=== PATIENT | female | born 1995 | race African-American/Black ===

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

== ENCOUNTER 2017-01-18 04:39 | Emergency (ER) | payer OTHER ==
[~2017-01-18] VITALS: Ht 165.1 cm; Wt 61.4 kg
[~2017-01-18 04:39] MED LIST changes: +ACET650S3 PR; +CLAR10CA3 PO; +GUAISYP4 PO; +IBUP-1022 PO; -IBUP600T26 PO; +IPRAINH INH
[2017-01-18 04:45] VITALS: BP 113/72
[2017-01-18] MEDS ORDERED: PROAAER10 (04:49)
[2017-01-18] MEDS ORDERED: IRON65TA PO (04:49)
[2017-01-18 05:59] LABS: CONTROL LINE HCG INT CTR LINE PRESENT
[2017-01-18] MEDS ORDERED: COLA100C5 PO (06:36)
--- NOTE | 2017-01-18 07:31 | REP ---
Clinical: Constipation and abdominal pain. Technique: Upright view of the chest with supine and upright views of the abdomen and pelvis. Findings: Frontal upright view of the chest demonstrates no acute cardiopulmonary process or free air below the diaphragm to suspect pneumoperitoneum. Supine and upright views of the abdomen and pelvis demonstrate nonspecific bowel gas pattern without obstruction or perforation. No organomegaly. No abnormal calcifications. Skeletal structures normal for age. Impression: Nonspecific bowel gas pattern. Signed by Carlton Bailey MD 01/18/2017 07:23 A
== END 2017-01-18 06:46 | disposition home or self-care (01) ==
LOC: M ED 04:39
DX: D50.9 Iron deficiency anemia, unspecified (principal); T45.4X5A Adverse effect of iron and its compounds, initial encounter; K59.03 Drug induced constipation; R42 Dizziness and giddiness; R10.9 Unspecified abdominal pain; J45.909 Unspecified asthma, uncomplicated; Z91.018 Allergy to other foods

== ENCOUNTER 2017-01-20 06:20 | Emergency (ER) | payer OTHER ==
[~2017-01-20] VITALS: Ht 167.6 cm; Wt 61.0 kg
[~2017-01-20 06:20] MED LIST changes: +COLA100C5 PO; +IRON65TA PO; +PROAAER10
[2017-01-20 06:31] VITALS: BP 142/82
[2017-01-20] MEDS ORDERED: ADV250INH INH (06:46)
== END 2017-01-20 06:56 | disposition home or self-care (01) ==
LOC: M ED 06:20
DX: J45.909 Unspecified asthma, uncomplicated (principal); Z79.51 Long term (current) use of inhaled steroids; Z79.899 Other long term (current) drug therapy; Z91.018 Allergy to other foods

== ENCOUNTER 2017-02-26 07:42 | Emergency (ER) | payer OTHER ==
[~2017-02-26] VITALS: Ht 165.1 cm; Wt 61.3 kg
[~2017-02-26 07:42] MED LIST changes: +ADV250INH INH
[2017-02-26] MEDS ORDERED: ALBUTEROL SULFATE 2.5 MG/0.5 ML INH NEB SOLN NEB ONE (08:45)
[2017-02-26] MEDS ORDERED: IPRATROPIUM 0.5MG/ALBUTEROL 2.5MG INH SOL UD 3ML (DUONEB)(J7620) NEB ONE (08:45)
[2017-02-26] MEDS ORDERED: methylPREDNISolone INJ 125 MG/2 ML VIAL (J2930) IV ONE (08:45)
[2017-02-26] MEDS ORDERED: predniSONE 20 MG TAB PO ONE (08:45)
[2017-02-26 09:21] LABS: BASO % 0.5 % (0.0-1.0); EOS # 0.1 K/mm3 (0.0-0.50); EOS % 2.5 % (0.0-3.0); LARGE UNSTAINED CELL # 0.1 K/mm3 (0.0-0.4); LARGE UNSTAINED CELL % 2.3 % (0.0-4.0); LYMPH # 1.7 K/mm3 (1.5-6.5); LYMPH % 36.4 % (24.0-44.0); MEAN CORPUSCULAR HEMOGLOBIN 21.7 pg (27.0-33.0); MEAN CORPUSCULAR VOLUME 72.3 fl (80.0-96.0); MONO # 0.3 K/mm3 (0.0-0.8); MONO % 5.2 % (0.0-5.0); NEUTROPHILS # 2.5 K/mm3 (1.8-7.7); NEUTROPHILS % 53.1 % (36.0-66.0); PLATELET COUNT, AUTOMATED 232 k/mm3 (150-450); RED CELL DISTRIBUTION WIDTH 20.2 % (11.5-14.5); WHITE BLOOD COUNT 4.8 K/mm3 (4.0-10.0)
[2017-02-26 09:22] LABS: CONTROL LINE HCG INT CTR LINE PRESENT
[2017-02-26 09:26] LABS: ANION GAP 9 MEQ/L (8-16); BLOOD UREA NITROGEN 5 MG/DL (7-18); CALCIUM LEVEL 8.4 MG/DL (8.5-10.1); CARBON DIOXIDE LEVEL 25 MEQ/L (21-32); CHLORIDE LEVEL 107 MEQ/L (98-107); GLUCOSE, FASTING 90 MG/DL (70-105); POTASSIUM SERUM 3.8 MEQ/L (3.5-5.1); SODIUM LEVEL 141 MEQ/L (136-145)
[2017-02-26] MEDS ORDERED: ZITHTAB PO (10:09)
[2017-02-26] MEDS ORDERED: PRED10TA2 PO (10:09)
[2017-02-26] MEDS ORDERED: ALBU17IN INH (10:09)
[2017-02-26 10:10] VITALS: BP 129/69
--- NOTE | 2017-02-26 11:13 | REP ---
Chest x-ray: Two views. History: Cough . Comparison study: February 01, 2017 . Findings: The lungs are well inflated and free of infiltrate. The pleural angles are sharp. The heart size is normal. Pulmonary vasculature is not increased. No significant bony abnormality is seen. Impression: Negative chest x-ray. Signed by Sherif Leo MD 02/26/2017 09:50 A
== END 2017-02-26 10:25 | disposition home or self-care (01) ==
LOC: M ED 07:42
DX: J45.901 Unspecified asthma with (acute) exacerbation (principal); J20.9 Acute bronchitis, unspecified; D64.9 Anemia, unspecified; Z91.018 Allergy to other foods; Z79.51 Long term (current) use of inhaled steroids
CPT/HCPCS: 71020; 80048; 84703; 85025; 94640; 96374; 99283; J2930

== ENCOUNTER → 2017-03-02 | Outpatient (CLI) | payer OTHER ==
[~2017-03-02] MED LIST changes: +ALBU17IN INH; +FERR1TAB8 PO; +METHACHOLINE KIT (J7674) INH ONE; +NEBUMIS2 XX; +PRED10TA2 PO; +SENN1TAB2 PO; +VENTAER INH; +VITA500T PO; +ZITHTAB PO; +ZOFR4TAB3 PO
--- NOTE | 2017-03-02 11:06 | PFTRPT ---
Tech: Jackson HIGUERA RRT Age: 21 Sex: Female Race: Black Height: 65.00 Inches Weight: 141.00 Lbs BSA: 1.71 Diagnosis: R06.02 METHACHOLINE CHALLENGE REPORT: ORDERING PROVIDER: CHARMAINE Barrera DATE OF SERVICE: 03/02/17 INTERPRETATION: The study was of excellent technical quality. Under protocol, methacholine was administered. At a dose of 0.25 mg (1.375 CDUs), a 21% decline in the FEV1 was noted. The PC20 of 0.19 is significant. Flow rates returned to baseline post bronchodilator administration. IMPRESSION: Positive methacholine challenge study. MTDD
== END ==
LOC: M CARPUL 10:32
PROVIDERS: ATTEND Nurse Practitioner Adult Health
DX: R06.02 Shortness of breath (principal)
CPT/HCPCS: 94070; J7674

== ENCOUNTER 2017-03-04 05:51 | Emergency (ER) | payer OTHER ==
[~2017-03-04] VITALS: Ht 165.1 cm; Wt 65.0 kg
[~2017-03-04 05:51] MED LIST changes: -FERR1TAB8 PO; -METHACHOLINE KIT (J7674) INH ONE; -NEBUMIS2 XX; -SENN1TAB2 PO; -VENTAER INH; -VITA500T PO; -ZOFR4TAB3 PO
[2017-03-04] MEDS ORDERED: IPRATROPIUM 0.5MG/ALBUTEROL 2.5MG INH SOL UD 3ML (DUONEB)(J7620) NEB ONE (07:15)
[2017-03-04] MEDS ORDERED: NEBUMIS2 XX (07:29)
[2017-03-04] MEDS ORDERED: predniSONE 20 MG TAB PO ONE (07:30)
[2017-03-04 08:35] VITALS: BP 121/63
== END 2017-03-04 08:36 | disposition home or self-care (01) ==
LOC: M ED 05:51
DX: J45.909 Unspecified asthma, uncomplicated (principal); Z79.899 Other long term (current) drug therapy; Z91.018 Allergy to other foods

== ENCOUNTER 2017-03-10 06:35 | Emergency (ER) | payer OTHER ==
[~2017-03-10] VITALS: Ht 165.1 cm; Wt 65.4 kg
[~2017-03-10 06:35] MED LIST changes: +NEBUMIS2 XX
[2017-03-10] MEDS ORDERED: ONDANSETRON 4MG/2ML VIAL (J2405) IV ONE (07:00)
[2017-03-10] MEDS ORDERED: NS 500 ML IV ONE (07:00)
[2017-03-10 07:31] LABS: BASO % 0.4 % (0.0-1.0); EOS # 0.2 K/mm3 (0.0-0.50); EOS % 3.1 % (0.0-3.0); LARGE UNSTAINED CELL # 0.1 K/mm3 (0.0-0.4); LARGE UNSTAINED CELL % 2.2 % (0.0-4.0); LYMPH # 2.2 K/mm3 (1.5-6.5); LYMPH % 42.6 % (24.0-44.0); MEAN CORPUSCULAR HEMOGLOBIN 21.6 pg (27.0-33.0); MEAN CORPUSCULAR HGB CONC 29.3 g/dl (32.0-36.5); MEAN CORPUSCULAR VOLUME 73.7 fl (80.0-96.0); MONO # 0.2 K/mm3 (0.0-0.8); MONO % 3.1 % (0.0-5.0); NEUTROPHILS # 2.4 K/mm3 (1.8-7.7); NEUTROPHILS % 48.7 % (36.0-66.0); PLATELET COUNT, AUTOMATED 230 k/mm3 (150-450); RED CELL DISTRIBUTION WIDTH 20.5 % (11.5-14.5)
[2017-03-10 07:51] LABS: ALBUMIN 3.4 GM/DL (3.2-5.2); ALBUMIN/GLOBULIN RATIO 0.94 (1.00-1.93); ALKALINE PHOSPHATASE 62 U/L (45-117); ALT/SGPT 19 U/L (12-78); ANION GAP 7 MEQ/L (8-16); AST/SGOT 16 U/L (15-37); BILIRUBIN,DIRECT < 0.1 MG/DL (0.0-0.2); BILIRUBIN,TOTAL 0.2 MG/DL (0.2-1.0); BLOOD UREA NITROGEN 7 MG/DL (7-18); CALCIUM LEVEL 8.3 MG/DL (8.5-10.1); CARBON DIOXIDE LEVEL 26 MEQ/L (21-32); CHLORIDE LEVEL 108 MEQ/L (98-107); CREATININE FOR GFR 0.81 MG/DL (0.55-1.02); GLUCOSE, FASTING 89 MG/DL (70-105); HCG, SERUM QUANTITATIVE < 1.0 MIU/ML; POTASSIUM SERUM 3.5 MEQ/L (3.5-5.1); SODIUM LEVEL 141 MEQ/L (136-145)
[2017-03-10 08:00] LABS: ADD MORPHOLOGY? YES; HYPOCHROMASIA 2+; MICROCYTOSIS 3+; POIKILOCYTOSIS 1+
--- NOTE | 2017-03-10 08:21 | REP ---
Abdominal right upper quadrant ultrasound: There is no cholelithiasis, gallbladder wall thickening or pericholecystic fluid. A mucosal fold is incidentally noted in the gallbladder neck. There is no intrahepatic or extrahepatic biliary duct dilatation, the common duct measures 3 mm in diameter. The hepatic parenchyma is homogeneous and otherwise unremarkable. The visualized portion of the pancreatic head is unremarkable. The body and tail are obscured by bowel gas. There is no right renal calculus or hydronephrosis. There is a 6 mm cyst in the lower pole. Impression: Essentially negative abdominal right upper quadrant ultrasound. Signed by Bryon Alaniz MD 03/10/2017 08:12 A
--- NOTE | 2017-03-10 08:28 | REP ---
PA and lateral chest: Comparison is 02/27/2017. The lung ma are clear. The cardiac size is normal The damián, mediastinum, and bony thorax are unremarkable. Impression: Negative PA and lateral chest. There is no interval change. Signed by Bryon Alaniz MD 03/10/2017 08:19 A
[2017-03-10] MEDS ORDERED: ZOFR4TAB3 PO (08:30)
[2017-03-10 08:38] VITALS: BP 117/71
== END 2017-03-10 08:40 | disposition home or self-care (01) ==
LOC: M ED 06:35
DX: D64.9 Anemia, unspecified (principal); R11.2 Nausea with vomiting, unspecified; R10.11 Right upper quadrant pain; J45.909 Unspecified asthma, uncomplicated; Z79.84 Long term (current) use of oral hypoglycemic drugs; Z79.899 Other long term (current) drug therapy; Z91.018 Allergy to other foods
CPT/HCPCS: 71020; 76705; 80048; 80076; 83690; 84702; 85025; 86140; 96361; 96374; 99283; J2405

== ENCOUNTER 2017-04-05 07:02 | Emergency (ER) | payer OTHER ==
[~2017-04-05] VITALS: Ht 165.1 cm; Wt 65.9 kg
[~2017-04-05 07:02] MED LIST changes: +ZOFR4TAB3 PO
[2017-04-05] MEDS ORDERED: FERR1TAB8 PO (07:11)
[2017-04-05 08:11] LABS: BASO % 0.2 % (0.0-1.0); EOS # 0.1 10^3/uL (0.0-0.50); EOS % 2.4 % (0.0-3.0); LYMPH # 2.3 10^3/uL (1.5-6.5); LYMPH % 46.4 % (24.0-44.0); MEAN CORPUSCULAR HEMOGLOBIN 20.9 pg (27.0-33.0); MEAN CORPUSCULAR HGB CONC 29.1 g/dl (32.0-36.5); MONO # 0.4 10^3/uL (0.0-0.8); NEUTROPHILS # 2.2 10^3/uL (1.8-7.7); PLATELET COUNT, AUTOMATED 239 10^3/uL (150-450); RED CELL DISTRIBUTION WIDTH 17.8 % (11.5-14.5)
[2017-04-05 08:26] LABS: ADD MORPHOLOGY? YES; MEAN CORPUSCULAR VOLUME 71.6 fl (80.0-96.0); POSITIVE MORPH POS FLAG
[2017-04-05] MEDS ORDERED: NS 1,000 ML IV ONE (08:30)
[2017-04-05] MEDS ORDERED: ONDANSETRON 4MG/2ML VIAL (J2405) IV ONE (08:30)
[2017-04-05 08:31] LABS: ALBUMIN 3.9 GM/DL (3.2-5.2); ALBUMIN/GLOBULIN RATIO 1.03 (1.00-1.93); ALKALINE PHOSPHATASE 79 U/L (45-117); ALT/SGPT 28 U/L (12-78); AMYLASE 79 U/L (25-115); ANION GAP 6 MEQ/L (8-16); AST/SGOT 20 U/L (15-37); BILIRUBIN,DIRECT < 0.1 MG/DL (0.0-0.2); BILIRUBIN,TOTAL 0.2 MG/DL (0.2-1.0); BLOOD UREA NITROGEN 12 MG/DL (7-18); CALCIUM LEVEL 8.5 MG/DL (8.5-10.1); CARBON DIOXIDE LEVEL 27 MEQ/L (21-32); CHLORIDE LEVEL 106 MEQ/L (98-107); CREATININE FOR GFR 0.83 MG/DL (0.55-1.02); GLUCOSE, FASTING 90 MG/DL (70-105); POTASSIUM SERUM 4.3 MEQ/L (3.5-5.1); SODIUM LEVEL 139 MEQ/L (136-145); TOTAL PROTEIN 7.7 GM/DL (6.4-8.2)
[2017-04-05 08:41] LABS: MICROCYTOSIS 2+; OVALOCYTES 1+
[2017-04-05 08:42] LABS: ANISOCYTOSIS 1+; HYPOCHROMASIA 1+
[2017-04-05] MEDS ORDERED: ZOFR4TAB3 PO (09:36)
[2017-04-05 09:47] VITALS: BP 120/73
== END 2017-04-05 09:48 | disposition home or self-care (01) ==
LOC: M ED 07:02
DX: R10.84 Generalized abdominal pain (principal); R11.2 Nausea with vomiting, unspecified; R19.7 Diarrhea, unspecified
CPT/HCPCS: 80048; 80076; 81001; 81025; 82150; 83690; 85025; 96374; 99283; J2405

== ENCOUNTER 2017-04-12 12:54 | Inpatient (IN) | payer OTHER ==
[~2017-04-12] VITALS: Ht 165.1 cm; Wt 65.2 kg
[~2017-04-12 12:54] MED LIST changes: +FERR1TAB8 PO
[2017-04-12] MEDS ORDERED: ALBUTEROL SULFATE 2.5 MG/0.5 ML INH NEB SOLN NEB ONE (13:45)
[2017-04-12] MEDS ORDERED: MAG SULF 1GM/100ML (MAG RUN) 1 GM in APPROPRIATE DILUENT 1 EA IV ONE (13:45)
[2017-04-12 14:18] LABS: BASO % 0.2 % (0.0-1.0); EOS % 0.5 % (0.0-3.0); IMMATURE GRANULOCYTE % 0.3 % (0-0); LYMPH # 0.8 10^3/uL (1.5-6.5); LYMPH % 13.3 % (24.0-44.0); MEAN CORPUSCULAR HEMOGLOBIN 20.7 pg (27.0-33.0); MEAN CORPUSCULAR HGB CONC 29.4 g/dl (32.0-36.5); MONO # 0.1 10^3/uL (0.0-0.8); MONO % 1.5 % (0.0-5.0); NEUTROPHILS # 5.2 10^3/uL (1.8-7.7); NEUTROPHILS % 84.2 % (36.0-66.0); PLATELET COUNT, AUTOMATED 220 10^3/uL (150-450); RED CELL DISTRIBUTION WIDTH 17.2 % (11.5-14.5); WHITE BLOOD COUNT 6.1 10^3/uL (4.0-10.0)
[2017-04-12 14:19] LABS: MEAN CORPUSCULAR VOLUME 70.4 fl (80.0-96.0); POSITIVE MORPH POS FLAG
[2017-04-12 14:20] LABS: ADD MORPHOLOGY? YES
--- NOTE | 2017-04-12 14:34 | REP ---
CHEST, SINGLE VIEW: There is no evidence of acute infiltrate. No pleural effusion is seen. The heart is normal in size. The mediastinal silhouette is unremarkable. The visualized osseous structures are intact. IMPRESSION: No acute pulmonary disease. Signed by Bryon Rosas MD 04/12/2017 04:35 P
[2017-04-12 14:42] LABS: ANION GAP 5 MEQ/L (8-16); BLOOD UREA NITROGEN 9 MG/DL (7-18); CALCIUM LEVEL 8.8 MG/DL (8.5-10.1); CARBON DIOXIDE LEVEL 29 MEQ/L (21-32); CHLORIDE LEVEL 105 MEQ/L (98-107); CREATININE FOR GFR 0.89 MG/DL (0.55-1.02); GLUCOSE, FASTING 115 MG/DL (70-105); POTASSIUM SERUM 3.7 MEQ/L (3.5-5.1); SODIUM LEVEL 139 MEQ/L (136-145)
[2017-04-12 15:16] LABS: ANISOCYTOSIS 2+; HYPOCHROMASIA 2+
[2017-04-12 15:17] LABS: OVALOCYTES 1+
[2017-04-12 15:18] LABS: SCHISTOCYTES 1+
[2017-04-12 15:19] LABS: MICROCYTOSIS 2+
[2017-04-12] MEDS ORDERED: VENTAER INH (15:56)
[2017-04-12] MEDS ORDERED: NS 1,000 ML IV SCH (16:58)
[2017-04-12] MEDS ORDERED: ACETAMINOPHEN TAB 650MG DOSE (2X325MG) PO PRN (17:00)
[2017-04-12] MEDS ORDERED: ONDANSETRON 4MG/2ML VIAL (J2405) IV PRN (17:00)
[2017-04-12 17:18] LABS: CONTROL LINE HCG INT CTR LINE PRESENT
--- NOTE | 2017-04-12 17:18 | HPEPDOC ---
[facility] Medical History & Physical Date of Admission Apr 12, 2017 History and Physical PRIMARY CARE PROVIDER: Nazia Younger ATTENDING: Dr. Abigail Shaffer CHIEF COMPLAINT: Shortness of breath/cough HISTORY OF PRESENT ILLNESS: This 21-year-old female with a history of asthma, sickle cell disease, iron deficiency anemia who presents complaining of shortness of breath and cough. Patient states she was recently diagnosed with asthma in September when she moved to [place] from [place] and started working in the cooking region on the . Patient states that the fumes in the kitchen cause her to go into a asthma exacerbation. She has been seen in the emergency department 6 times since October and states that each time she came in it was after her shift in the kitchen. States she has a albuterol inhaler which she takes 3 times a day. Has not been on any maintenance medications. Patient was seen by Dr. Casey pulmonary outpatient, states she had a PFT test done and was diagnosed with asthma in September. Patient states her next pulmonary Pulm is on . Patient also notes that she does have 1 dog that she recently obtained a few months ago however no carpet at home. States mushrooms cause her to have a severe allergic reaction. The patient was brought to the ED by EMS and had received nebs and 10 mg Decadron in the ED. Patient states her shortness of breath has significantly improved however is not back to her baseline. Had chest tightness with the asthma exacerbation states she typically has checked chest tightness prior to her asthma exacerbations. States that this chest tightness was completely resolved at this point. States she was recently feeling ill over the past 3 days with sore throats a fever of 101 last night, and symptoms of gastric enteritis for which she was seen at [facility] 2 days ago. Patient states that the diarrhea she had 2 days ago has resolved. Her abdominal pain is significantly improved. Patient's resting comfortably in bed. He is not in any acute respiratory distress. PAST MEDICAL HISTORY: As per HPI PAST SURGICAL HISTORY: None SOCIAL HISTORY: Denies tobacco, alcohol, illicit drug use. FAMILY HISTORY: Noncontributory ALLERGIES: Please see below. REVIEW OF SYSTEMS: HEENT: Denies sore throat/headache CARDIOVASCULAR: Denies chest pain/palpitations RESPIRATORY: Positive shortness of breath/cough GASTROINTESTINAL: denies nausea/vomiting GENITOURINARY: Denies dysuria/urinary urgency. MUSCULOSKELETAL: Denies myalgias/arthralgias NEUROLOGICAL: Denies any focal weakness HOME MEDICATIONS: Please see below. PHYSICAL EXAMINATION: Vitals: (see below) General: No acute distress, laying comfortably in bed. HEENT: Moist mucous membranes. No erythema. No exudates. Neck: No JVD or lymphadenopathy Cardiac: RRR, No murmurs Pulm: Mild expiratory wheezing. No rhonchi. No crackles. No stridor. No use of accessory muscles. Abd: NT/ND + BS Ext: No edema or cyanosis LABORATORY DATA: See below. IMAGING: Chest x-ray on 04/12/17 with no acute pulmonary disease. CTA chest on 04/12/17 pending. MICROBIOLOGY: Please see below. ASSESSMENT/PLAN: 1. Acute asthma exacerbation- patient states she has been having frequent asthma exacerbations which she equates to fumes from the kitchen at the [facility]. This is her sixth year visit since October. She follows up with pulmonary. She is on albuterol inhaler. She would benefit from a maintenance inhaler such as Symbicort or Advair twice a day on discharge. Has a pulmonary appointment on . In the meantime, we'll place patient on telemetry,. Has symptoms of viral symptoms prior to this exacerbation; will check respiratory panel. 2. History sickle cell disease-states her last crisis was one month ago at [facility] when her hemoglobin was 3 needed blood transfusions. We'll obtain records. 3. Iron deficiency anemia- continue for sulfate. Outpatient follow-up. 4. T-wave inversions on EKG- patient denies any chest breath this time. Chronic enzymes negative thus far. We'll trend. Echocardiogram ordered. We'll obtain records from [facility] to determine if these are new. DVT prophylaxis- out of bed and ambulate Patient called by Dr. Abigail Shaffer starting 04/13/17 at 7 AM. Vital Signs Vital Signs Date Time Temp Pulse Resp B/P (MAP) Pulse Ox O2 Delivery O2 Flow Rate FiO2 04/12/17 16:18 04/12/17 16:09 70 99 04/12/17 13:04 98.8 18 Room Air Laboratory Data Labs 24H Laboratory Tests 2 04/12/17 14:00: Immature Granulocyte % (Auto) 0.3H, White Blood Count 6.1, Red Blood Count 4.49 , Hemoglobin 9.3L, Hematocrit 31.6L, Mean Corpuscular Volume 70.4L, Mean Corpuscular Hemoglobin 20.7L, Mean Corpuscular Hemoglobin Concent 29.4L, Red Cell Distribution Width 17.2H, Platelet Count 220, Neutrophils (%) (Auto) 84.2H , Lymphocytes (%) (Auto) 13.3L, Monocytes (%) (Auto) 1.5, Eosinophils (%) (Auto ) 0.5, Basophils (%) (Auto) 0.2, Neutrophils # (Auto) 5.2, Lymphocytes # (Auto) 0.8L, Monocytes # (Auto) 0.1, Eosinophils # (Auto) 0.0, Basophils # (Auto) 0.0, Immature Granulocyte # (Auto) 0.0, Nucleated Red Blood Cells % (auto) 0.0, Platelet Estimate NORMAL, Hypochromasia 2+, Anisocytosis 2+, Microcytosis 2+, Ovalocytes 1+, Schistocytes 1+, Anion Gap 5L, Blood Urea Nitrogen 9, Creatinine 0.89, Sodium Level 139, Potassium Level 3.7, Chloride Level 105, Carbon Dioxide Level 29, Calcium Level 8.8, Total Creatine Kinase 153, Creatine Kinase MB 1.0, Creatine Kinase MB Relative Index 0.65, Troponin I < 0.02 CBC/BMP Laboratory Tests 04/12/17 14:00 Red Blood Count 4.49, Mean Corpuscular Volume 70.4 L, Mean Corpuscular Hemoglobin 20.7 L, Mean Corpuscular Hemoglobin Concent 29.4 L, Red Cell Distribution Width 17.2 H, Neutrophils (%) (Auto) 84.2 H, Lymphocytes (%) (Auto ) 13.3 L, Monocytes (%) (Auto) 1.5, Eosinophils (%) (Auto) 0.5, Basophils (%) ( Auto) 0.2, Neutrophils # (Auto) 5.2, Lymphocytes # (Auto) 0.8 L, Monocytes # ( Auto) 0.1, Eosinophils # (Auto) 0.0, Basophils # (Auto) 0.0, Calcium Level 8.8, Total Creatine Kinase 153 Home Medications Scheduled Ferrous Sulfate (Ferrous Sulfate) 325 Mg Tab, 325 MG PO TID Scheduled PRN Albuterol Sulfate (Ventolin Hfa) 108 Mcg/Act Aer, 2 PUFFS INH Q4H PRN for SHORTNESS OF BREATH Allergies Coded Allergies: Mushroom (Verified Allergy, Severe, anaphylaxis, 04/12/17) ANAND FANG MD Apr 12, 2017 17:18
[2017-04-12] MEDS ORDERED: ISOVUE-370 76% 100ML VIAL (Q9967) As Ordered ONE (17:59)
[2017-04-12] MEDS: FERROUS SULFATE 325MG TAB PO SCH (20:08)
[2017-04-12] MEDS: methylPREDNISolone INJ 40 MG/1 ML VIAL (J2920) IV SCH (20:08)
[2017-04-12 20:20] VITALS: BP 121/76
--- NOTE | 2017-04-12 21:13 | ECGEPIP ---
Stationary ECG Study [facility] - ED Test Date: 2017-04-12 Pat Name: DELFINO PRABHAKAR Department: Room: - Gender: F [employer] Clerk: : 1995 Requested By: NGHIA Ziegler Order Number: [id number] Reading MD: Danae Albarran Measurements Intervals [place] Rate: 76 P: 38 GA: 130 QRS: 65 QRSD: 92 T: 33 QT: 376 QTc: 425 Interpretive Statements SINUS RHYTHM POSSIBLE RIGHT VENTRICULAR CONDUCTION DELAY NSTTW ABNORMALITY NO PRIOR FOR COMPARISON Electronically Signed On 04-12-2017 21:13:32 EDT by Danae Albarran
[2017-04-12] MEDS: IPRATROPIUM 0.5MG/ALBUTEROL 2.5MG INH SOL UD 3ML (DUONEB)(J7620) NEB SCH (21:25)
[2017-04-13] VITALS (7 sets, daily range): BP systolic 92–128; BP diastolic 51–77
[2017-04-13] MEDS: IPRATROPIUM 0.5MG/ALBUTEROL 2.5MG INH SOL UD 3ML (DUONEB)(J7620) NEB SCH ×7 (00:41→23:42)
[2017-04-13] MEDS: ALBUTEROL SULFATE 2.5 MG/0.5 ML INH NEB SOLN INH PRN (02:52)
[2017-04-13] MEDS: methylPREDNISolone INJ 40 MG/1 ML VIAL (J2920) IV SCH ×3 (03:00→17:03)
[2017-04-13] MEDS: FERROUS SULFATE 325MG TAB PO SCH ×3 (08:16→20:05)
[2017-04-13 08:49] LABS: PLATELET COUNT, AUTOMATED 247 10^3/uL (150-450); RED CELL DISTRIBUTION WIDTH 17.2 % (11.5-14.5); WHITE BLOOD COUNT 11.6 10^3/uL (4.0-10.0)
[2017-04-13 09:20] LABS: ANION GAP 11 MEQ/L (8-16); BLOOD UREA NITROGEN 8 MG/DL (7-18); CALCIUM LEVEL 9.2 MG/DL (8.5-10.1); CARBON DIOXIDE LEVEL 23 MEQ/L (21-32); CHLORIDE LEVEL 106 MEQ/L (98-107); CREATININE FOR GFR 0.89 MG/DL (0.55-1.02); GLUCOSE, FASTING 169 MG/DL (70-105); MAGNESIUM LEVEL 2.1 MG/DL (1.4-2.0); SODIUM LEVEL 140 MEQ/L (136-145)
[2017-04-13 12:42] LABS: RETIC HEMOGLOBIN EQUIVALENT 20.4 pg (24-36); RETICULOCYTE % 1.1 % (0.5-1.5)
[2017-04-13 12:44] LABS: REASON FOR REVIEW COMPREHENSIVE REVIEW
[2017-04-13] MEDS: SENOKOT S TAB PO SCH ×2 (12:55→20:05)
[2017-04-13] MEDS: ASCORBIC ACID 500 MG TAB PO SCH ×2 (12:55→20:05)
[2017-04-13] MEDS: LR 1,000 ML IV SCH ×2 (12:55→21:41)
--- NOTE | 2017-04-13 13:04 | REP ---
CHEST, TWO VIEWS: There is no evidence of acute infiltrate. No pleural effusion is seen. The heart is normal in size. The mediastinal silhouette is unremarkable. The visualized osseous structures are intact. IMPRESSION: No acute pulmonary disease. Signed by Bryon Rosas MD 04/14/2017 04:26 P
[2017-04-13 13:12] LABS: FERRITIN 5 NG/ML (8-252); PERCENT SATURATION 22.3 % (13.2-45.0); TOTAL IRON BINDING CAPACITY 394 UG/DL (250-450); VITAMIN B12 LEVEL 628 PG/ML (247-911)
[2017-04-13 13:13] LABS: FOLATE 9.4 NG/ML (>5.4)
--- NOTE | 2017-04-13 18:00 | IPN ---
DATE: 04/13/2017 The patient continued to report shortness of breath with wheezing and coughing and chest pressure. Denies any fevers, chills, chest pain, pressure or discomfort. VITAL SIGNS: Temperature 99.5, pulse 110, respiratory rate 20, blood pressure 120/62, pulse oximetry 98% on room air. Blood cultures negative. Respiratory panel negative. Chest x-ray with no acute disease. LABORATORY DATA: WBC 11.6, hemoglobin and hematocrit 8.9/29.7, platelets 247. Chemistry: Sodium 140, potassium 4, chloride 106, bicarbonate 23, BUN 8, creatinine 0.89, C-reactive protein negative. PHYSICAL EXAMINATION: GENERAL: The patient is awake, alert, and oriented times three, in no acute distress. HEENT: Normocephalic, atraumatic. Moist mucous membranes. CARDIAC: Regular rate and rhythm with normal S1, S2. PULMONARY: Mild expiratory wheeze. No crackles, rales, or rhonchi. ABDOMEN: Soft, nontender. Positive bowel sounds. EXTREMITIES: No clubbing, cyanosis, or edema. ASSESSMENT AND PLAN: This is a 21-year-old female patient with underlying medical history of asthma, iron deficiency anemia, menorrhagia, initially thought to be having sickle cell disease, presented with shortness of breath and cough. PROBLEM LIST: 1. Acute asthma exacerbation, likely viral. C-reactive protein has been negative. Continue Solu-Medrol, inhaler, nebulizer treatment. We will place the patient on Advair as well. Case discussed with Dr. Roque. The patient had negative hemoglobin electrophoresis. Therefore, the patient does not have sickle cell disease or traits. As per Dr. Laya Roque, likely anemia due to menorrhagia. Therefore, no concern for acute chest. 2. Iron deficiency anemia. Continue ferrous sulfate, vitamin C. Transfusions as needed. Followup hemoglobin and hematocrit. Workup as ordered. 3. T wave inversion on EKG. Denies any chest pain. Enzymes appreciated. Echocardiogram ordered. We will obtain record from [facility]. Suspected sickle cell disease, as per Dr. Laya Roque the patient does not have sickle cell disease or traits. Hemoglobin electrophoresis and workup has been negative. The patient did not followup when asked to followup results. We will follow hemoglobin and hematocrit. Transfuse as needed. Followup fecal occult. Anemia workup as ordered. 4. Deep vein thrombosis (DVT) prophylaxis. Early ambulation. DISPOSITION: Pending clinical improvement.
[2017-04-13 18:18] LABS: CONTROL LINE HCG INT CTR LINE PRESENT
[2017-04-13] MEDS: ADVAIR HFA 230/21MCG INHALER INH SCH (20:48)
[2017-04-14] VITALS (7 sets, daily range): BP systolic 106–145; BP diastolic 57–92
[2017-04-14] MEDS: methylPREDNISolone INJ 40 MG/1 ML VIAL (J2920) IV SCH ×4 (00:50→18:00)
[2017-04-14] MEDS: IPRATROPIUM 0.5MG/ALBUTEROL 2.5MG INH SOL UD 3ML (DUONEB)(J7620) NEB SCH ×5 (03:04→19:31)
[2017-04-14 05:16] LABS: MEAN CORPUSCULAR HEMOGLOBIN 20.9 pg (27.0-33.0); MEAN CORPUSCULAR HGB CONC 29.7 g/dl (32.0-36.5); PLATELET COUNT, AUTOMATED 277 10^3/uL (150-450); RED CELL DISTRIBUTION WIDTH 17.3 % (11.5-14.5); WHITE BLOOD COUNT 14.8 10^3/uL (4.0-10.0)
[2017-04-14 05:18] LABS: MEAN CORPUSCULAR VOLUME 70.2 fl (80.0-96.0)
[2017-04-14 05:31] LABS: ANION GAP 7 MEQ/L (8-16); BLOOD UREA NITROGEN 6 MG/DL (7-18); CALCIUM LEVEL 8.7 MG/DL (8.5-10.1); CARBON DIOXIDE LEVEL 26 MEQ/L (21-32); CHLORIDE LEVEL 105 MEQ/L (98-107); CREATININE FOR GFR 0.72 MG/DL (0.55-1.02); GLUCOSE, FASTING 145 MG/DL (70-105); POTASSIUM SERUM 4.4 MEQ/L (3.5-5.1); SODIUM LEVEL 138 MEQ/L (136-145)
[2017-04-14] MEDS ORDERED: GASTROGRAFIN SOLUTION 30ML PO ONE (09:00)
[2017-04-14] MEDS: MIRALAX *UNIT DOSE* 17GM PACKET PO SCH ×2 (09:00→09:11)
[2017-04-14] MEDS: ASCORBIC ACID 500 MG TAB PO SCH ×2 (09:11→20:38)
[2017-04-14] MEDS: SENOKOT S TAB PO SCH ×2 (09:11→20:38)
[2017-04-14] MEDS: FERROUS SULFATE 325MG TAB PO SCH ×3 (09:11→20:38)
[2017-04-14] MEDS ORDERED: GASTROGRAFIN SOLUTION 30ML (Q9963) PO ONE (09:30)
[2017-04-14] MEDS: ADVAIR HFA 230/21MCG INHALER INH SCH ×2 (09:54→19:31)
[2017-04-14] MEDS: ALBUTEROL SULFATE 2.5 MG/0.5 ML INH NEB SOLN INH PRN (09:54)
[2017-04-14] MEDS ORDERED: ISOVUE-370 76% 100ML VIAL (Q9967) As Ordered ONE (10:44)
[2017-04-14] MEDS: LR 1,000 ML IV SCH (11:30)
--- NOTE | 2017-04-14 13:25 | REP ---
CT of the abdomen and pelvis with IV and oral contrast: There are no comparisons. The visualized lung ma are unremarkable. The hepatic parenchyma, gallbladder, pancreas, spleen, adrenals, kidneys and abdominal aorta are unremarkable. There is no bowel distension or obstruction. The mesentery is unremarkable. Pelvis: There is a trace of free fluid along the posteromedial border of the right ovary. The uterus and adnexa are otherwise unremarkable. The appendix is unremarkable. There is no adenopathy or ascites. The bladder is unremarkable. Impression: There is a trace of free fluid along the inferomedial border of the right ovary, possibly from a recently ruptured ovarian cyst. Otherwise, negative CT of the abdomen and pelvis. Signed by Bryon Alaniz MD 04/14/2017 01:17 P
--- NOTE | 2017-04-14 17:23 | IPN ---
DATE: 04/14/2017 Patient seen and examined. No acute events overnight. Report of abdominal pain. Denies any chest pain, pressure, or discomfort. VITAL SIGNS: Temperature 99, pulse 91, respirations 20, blood pressure 124/68, pulse oximetry 98% on room air. LABORATORY DATA: WBC 14.8, hemoglobin and hematocrit 9.1/30.6, platelets 277. Chemistry: Sodium 138, potassium 4.4, chloride 105, bicarbonate 26, BUN 6, creatinine 0.72. PHYSICAL EXAMINATION: GENERAL: Patient alert and oriented times three in no acute distress. HEENT: Normocephalic, atraumatic. PULMONARY: Bilaterally clear to auscultation. CARDIAC: Regular rate and rhythm. Normal S1, S2. ABDOMEN: Diffusely tender. Positive bowel sounds. No rebound. No guarding. EXTREMITIES: No clubbing, cyanosis, or edema. ASSESSMENT AND PLAN: This is a 21-year-old female patient with underlying medical history of asthma, iron deficiency anemia, menorrhagia, initially thought to have sickle cell disease, presented with shortness of breath and cough. 1. Acute asthma exacerbation, likely viral. C-reactive protein has been negative. Solu-Medrol. Taper steroid. Nebulizer treatment. Advair. Case discussed with Dr. Reyna. Patient had negative hemoglobin and electrophoresis, therefore does not have sickle cell disease or traits as Dr. Laya Reyna. Anemia is due to menorrhagia, therefore no concern for acute chest. 2. Iron deficiency anemia. Continue ferrous sulfate, vitamin C. Transfusion as needed. Followup hemoglobin and hematocrit. Further workup as outpatient. 3. T- wave inversion on EKG. Denies any chest pain. .Enzymes have been appreciated. Echo has been ordered. Obtained record from [facility]. Patient does not have history of sickle cell disease or trait as per Dr. Laya Reyna. Fecal occult has been negative. 4. Abdominal pain. CT scan appreciated. Lipase has been negative. Likely secondary to ruptured ovarian cyst. 5. Deep vein thrombosis (DVT) prophylaxis. Early ambulation. DISPOSITION PLANNING: Pending chronic lymphocytic leukemia improvement.
[2017-04-14] MEDS ORDERED: SLF 3 ML SYR IV PRN (19:00)
[2017-04-14] MEDS: SLF 3 ML SYR IV SCH (20:38)
[2017-04-15] VITALS: BP 142/66
[2017-04-15] MEDS: IPRATROPIUM 0.5MG/ALBUTEROL 2.5MG INH SOL UD 3ML (DUONEB)(J7620) NEB SCH ×3 (03:11→08:00)
[2017-04-15 04:00] VITALS: BP 105/73
[2017-04-15] MEDS: methylPREDNISolone INJ 40 MG/1 ML VIAL (J2920) IV SCH (05:11)
[2017-04-15] MEDS: SLF 3 ML SYR IV SCH (05:11)
--- NOTE | 2017-04-15 06:36 | ECHO ---
DATE OF PROCEDURE: 04/13/2017 DATE OF : 1995 AGE: 21 GENDER: Female HEIGHT: 65 inches WEIGHT: 143 pounds BODY SURFACE AREA: 1.72 meters squared INPATIENT: PCU REFERRING PHYSICIAN: Dr. Kim James INDICATION: Abnormal EKG. MEASUREMENTS: 2-D Measurements: RV: 3.9 cm LV: 4.3cm Septum: 1.0 cm Posterior wall: 1.0 cm Aortic root: 2.4 cm LA: 3.1 cm LVEF: 65% Doppler Measurements: AV: 2.3 m/s LVOT: 1.6 m/s LVOT diameter: 1.8 cm MV - E: 120 A 130 EA ratio 1 Early mitral deceleration time: 151 ms E prime: 14.9 A prime: 12 E/E prime ratio: 8 PV: 1.1 m/s RVSP: 25 mmHg IVC: 1.5 cm COMMENTS: Sinus tachycardia without intraventricular conduction disturbance. Normal cardiac chamber sizes, wall thickness and wall motion. Normal-appearing mitral valvular apparatus and leaflet excursion with no posterior systolic buckling. Three equal size aortic cusps of normal thickness and cusp separation. Normal aortic root size. No apparent intracardiac mass or pericardial effusion. Color flow Doppler study taken with parasternal and apical projection showed trace mitral and very mild tricuspid, but no aortic insufficiency. Guided continuous wave Doppler of her aortic valve and pulsed Doppler study of her LV outflow tract taken from the apical long axis and five chamber projection showed an increased peak systolic velocity, but LV outflow tract velocity was also increased in keeping with a hyperdynamic circulation rather than LV outflow tract obstruction. Pulsed and continuous wave Doppler of her LV inflow tract taken from the apical and four-chamber projection showed normal diastolic filling velocities against mitral stenosis. The filling pattern was normal against LV diastolic dysfunction. Pulsed and continuous wave Doppler of her pulmonary trunk showed a normal peak systolic velocity against RV outflow tract. Guided continuous wave Doppler of her tricuspid valve allowed our estimation of her right ventricular systolic pressure (within normal limits). Her inferior vena cava was of normal size and collapsed normally with respiration against an elevated central venous pressure. CONCLUSIONS: Normal-appearing echocardiogram/Doppler study.
[2017-04-15 07:24] LABS: MEAN CORPUSCULAR HEMOGLOBIN 20.5 pg (27.0-33.0); MEAN CORPUSCULAR HGB CONC 28.9 g/dl (32.0-36.5); PLATELET COUNT, AUTOMATED 294 10^3/uL (150-450); RED CELL DISTRIBUTION WIDTH 17.8 % (11.5-14.5); WHITE BLOOD COUNT 12.9 10^3/uL (4.0-10.0)
[2017-04-15 07:48] LABS: ANION GAP 8 MEQ/L (8-16); BLOOD UREA NITROGEN 11 MG/DL (7-18); CALCIUM LEVEL 9.1 MG/DL (8.5-10.1); CARBON DIOXIDE LEVEL 29 MEQ/L (21-32); CHLORIDE LEVEL 104 MEQ/L (98-107); CREATININE FOR GFR 0.76 MG/DL (0.55-1.02); GLUCOSE, FASTING 114 MG/DL (70-105); POTASSIUM SERUM 4.3 MEQ/L (3.5-5.1); SODIUM LEVEL 141 MEQ/L (136-145)
[2017-04-15 08:00] VITALS: BP 135/86
[2017-04-15] MEDS: ADVAIR HFA 230/21MCG INHALER INH SCH (08:04)
[2017-04-15] MEDS ORDERED: VITA500T PO (08:06)
[2017-04-15] MEDS ORDERED: FERR1TAB8 PO (08:06)
[2017-04-15] MEDS ORDERED: SENN1TAB2 PO (08:06)
[2017-04-15] MEDS ORDERED: PRED10TA2 PO (08:06)
[2017-04-15] MEDS: MIRALAX *UNIT DOSE* 17GM PACKET PO SCH (08:34)
[2017-04-15] MEDS: FERROUS SULFATE 325MG TAB PO SCH (08:34)
[2017-04-15] MEDS: SENOKOT S TAB PO SCH (08:34)
[2017-04-15] MEDS: ASCORBIC ACID 500 MG TAB PO SCH (08:34)
[2017-04-15] MEDS ORDERED: predniSONE 50 MG TAB PO SCH (09:00)
--- NOTE | 2017-04-17 00:16 | DSES ---
DATE OF ADMISSION: 04/14/2017 DATE OF DISCHARGE: 04/15/2017 FINAL DIAGNOSES: Acute asthma exacerbation. Ruptured ovarian cyst. Iron deficiency anemia. HISTORY OF THE PRESENT ILLNESS: This is a 21-year-old female patient with underlying medical history of asthma, iron deficiency anemia. Patient apparently reported that she has sickle cell disease, presented with complaints of shortness of breath and cough, was recently diagnosed with asthma in September. 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 The patient states that the fumes in the kitchen have been causing her to go into asthma exacerbation. She has been seen in the emergency room six times since October and states that each time she came in, it was after her shift in the kitchen. She states that she has had albuterol inhaler, which she takes three times a day and has not been on any maintenance medication. She has been seen by Dr. Mcdonald, pulmonary as an outpatient. She has had pulmonary function tests done and was diagnosed with asthma in September. She states that her next pulmonary followup was on . The patient also has a dog. No carpet in the home. She was allergic to MUSHROOM. The patient was given a nebulizer treatment, Decadron, with improvement of shortness of breath in the emergency room. HOSPITAL COURSE; The patient was admitted to the hospital. C-reactive protein was negative. Respiratory panel was negative. Cultures were followed. Steroids were started and tapered. During the hospital course, the patient also reported abdominal pain. Workup has been negative in terms of negative lipase and CT scan shows a ruptured ovarian cyst. Furthermore, the case was discussed with Dr. Laya Roque, the patient's hematology/oncologist, who confirmed that the patient does not have sickle cell disease or trait with negative hemoglobin electrophoresis, but patient likely has anemia, iron deficiency anemia secondary to menorrhagia. The patient's condition progressively improved, currently returned to baseline, tolerating oral, ready for discharge for further care. VITAL SIGNS: Temperature 98.5, pulse 85, respirations 18, blood pressure 135/86, pulse oximetry 99% on room air. GENERAL: Patient alert and oriented times three, in no acute distress. HEENT: Normocephalic, atraumatic. PULMONARY: Minimal wheeze. CARDIAC: Regular rate and rhythm. Normal S1, S2. ABDOMEN: Soft, nontender, positive bowel sounds EXTREMITIES: No clubbing, cyanosis or edema. LABORATORY: WBC 12.9, hemoglobin and hematocrit 9 over 31.1, platelets 294. Chemistry: Sodium 141, potassium 4.3, chloride 104, bicarbonate 29, BUN 11, creatinine 0.79. DISCHARGE MEDICATIONS: - vitamin C 500 mg by mouth twice a day - prednisone 10 mg by mouth tablets, taper with four tablets by mouth daily for 2 days, two tablets by mouth daily for 2 days and then one tablet by mouth daily for two days, then stop. - Senna Plus one tablet by mouth twice a day - Ventolin inhaler every 4 hours as needed - ferrous sulfate 325 mg by mouth three times a day DISCHARGE INSTRUCTIONS: The patient was instructed to followup with primary care provider in 7 days, hematology/oncology doctor, Dr. Laya Roque, in 2-3 weeks and exchange engineer in 2 weeks. Return to the hospital if symtoms worsen.
--- NOTE | 2017-04-23 18:42 | REP ---
HISTORY: Chest pain. COMPARISON: 02/27/2017 from [facility], which was normal. CONTRAST: 100 mL Isovue-370. There is excellent visualization of the pulmonary arterial vasculature. There are no focal filling defects present that would be considered consistent with pulmonary emboli. There are no pleural or pericardial effusions. The mediastinum and pulmonary damián are unchanged showing no evidence of a mass or adenopathy. The imaged upper abdomen and imaged osseous structures are within normal limits and unchanged from the prior exam. Evaluation of the lung ma show no significant changes from the prior examination. There are no abnormal nodules, masses, or opacities. IMPRESSION: CT findings are within normal limits and unchanged from the prior exam. Signed by Osvaldo Morrison DO 04/28/2017 05:40 P
== END 2017-04-15 09:50 | disposition home or self-care (01) | DRG 203 ==
LOC: EDBD 12:54 → M ED 12:54 → M ED INP 16:58 → M PCU 18:25 → OBSVTOIN 04-14 11:23 → M PED 04-14 21:10
PROVIDERS: ADMIT Internal Medicine; ATTEND Hospitalist
DX: J45.901 Unspecified asthma with (acute) exacerbation (principal); D50.0 Iron deficiency anemia secondary to blood loss (chronic); Z91.018 Allergy to other foods; N92.0 Excessive and frequent menstruation with regular cycle; N83.201 Unspecified ovarian cyst, right side; Z79.899 Other long term (current) drug therapy

== ENCOUNTER 2017-09-14 17:16 | Emergency (ER) | payer OTHER | END 2017-09-14 18:14 | disposition home or self-care (01) | LOC: M ED 17:16 | DX: Z04.8 Encounter for examination and observation for other specified reasons (principal); Z79.899 Other long term (current) drug therapy; Z91.018 Allergy to other foods | CPT/HCPCS: 99282 ==

== ENCOUNTER 2017-09-15 00:23 | Emergency (ER) | payer OTHER ==
[2017-09-15] MEDS: ALBUTEROL SULFATE 2.5 MG/0.5 ML INH NEB SOLN INH ×2 (00:59→03:02)
[2017-09-15] MEDS: methylPREDNISolone INJ 125 MG/2 ML VIAL (J2930) IM (01:07)
== END 2017-09-15 05:17 | disposition home or self-care (01) ==
LOC: M ED 00:23
DX: J45.909 Unspecified asthma, uncomplicated (principal); D57.3 Sickle-cell trait; Z91.018 Allergy to other foods; Z79.52 Long term (current) use of systemic steroids; Z79.899 Other long term (current) drug therapy
CPT/HCPCS: J2930

== ENCOUNTER → 2019-04-20 | Outpatient (REF) | payer MEDICAID ==
[~2019-04-20] MED LIST changes: +SENN-53 PO; +VENTAER INH; +VITA500T PO; +ZOFR4TAB14 PO; -ZOFR4TAB3 PO
[2019-04-20 13:38] LABS: HEMATOCRIT 29.7 % (36.0-47.0); HEMOGLOBIN 8.8 g/dl (12.0-15.5); MEAN CORPUSCULAR HEMOGLOBIN 22.6 pg (27.0-33.0); MEAN CORPUSCULAR HGB CONC 29.6 g/dl (32.0-36.5); MEAN CORPUSCULAR VOLUME 76.3 fl (80.0-96.0); PLATELET COUNT, AUTOMATED 176 10^3/uL (150-450); RED BLOOD COUNT 3.89 10^6/uL (4.00-5.40); WHITE BLOOD COUNT 7.1 10^3/uL (4.0-10.0)
[2019-04-21 10:18] LABS: HIV 1&2 SCREEN CENTAUR NEGATIVE (NEGATIVE); RUBELLA IgG QUALITATIVE IMMUNE (IMMUNE)
== END ==
LOC: M LAB REF 12:44
PROVIDERS: ATTEND Obstetrics & Gynecology
DX: O36.80X0 Pregnancy with inconclusive fetal viability, not applicable or unspecified (principal)

== ENCOUNTER 2019-05-20 14:23 | Outpatient (CLI) | payer MEDICAID ==
[~2019-05-20] VITALS: Ht 167.6 cm; Wt 70.8 kg
[2019-05-20 14:43] VITALS: BP 111/72
[2019-05-20] MEDS ORDERED: PRENTAB9 PO (15:04)
== END 2019-05-20 16:00 | disposition home or self-care (01) ==
LOC: M LDO 14:23
PROVIDERS: ATTEND Obstetrics & Gynecology
DX: O21.2 Late vomiting of pregnancy (principal); Z3A.26 26 weeks gestation of pregnancy

== ENCOUNTER → 2019-06-06 | Outpatient (CLI) | payer MEDICAID ==
[~2019-06-06] MED LIST changes: +PRENTAB9 PO
[2019-06-06 11:12] LABS: HEMOGLOBIN 9.8 g/dl (12.0-15.5); MEAN CORPUSCULAR HEMOGLOBIN 23.9 pg (27.0-33.0); MEAN CORPUSCULAR HGB CONC 29.7 g/dl (32.0-36.5); MEAN CORPUSCULAR VOLUME 80.5 fl (80.0-96.0); PLATELET COUNT, AUTOMATED 142 10^3/uL (150-450); WHITE BLOOD COUNT 6.8 10^3/uL (4.0-10.0)
== END ==
LOC: M LAB 08:28
PROVIDERS: ATTEND Obstetrics & Gynecology
DX: Z34.82 Encounter for supervision of other normal pregnancy, second trimester (principal)

== ENCOUNTER 2019-06-10 15:37 | Outpatient (CLI) | payer MEDICAID ==
[~2019-06-10] VITALS: Ht 167.6 cm; Wt 74.1 kg
[2019-06-10 15:57] VITALS: BP 110/73
== END 2019-06-10 17:00 | disposition home or self-care (01) ==
LOC: M LDO 15:37
PROVIDERS: ATTEND Obstetrics & Gynecology
DX: O36.8131 Decreased fetal movements, third trimester, fetus 1 (principal); Z3A.29 29 weeks gestation of pregnancy; O99.013 Anemia complicating pregnancy, third trimester

== ENCOUNTER 2019-07-06 10:31 | Outpatient (CLI) | payer MEDICAID ==
[~2019-07-06] VITALS: Ht 167.6 cm; Wt 74.1 kg
[2019-07-06 11:03] VITALS: BP 108/60
[2019-07-06 13:18] VITALS: BP 113/63
--- NOTE | 2019-07-06 13:59 | REP ---
Obstetric sonography: History: Supervision of . anatomy. History of possible intracranial anomaly. No comparison sonogram. Findings: Scanning through the gravid uterus demonstrates a living intrauterine gestation in a cephalic lie. motion is observed and heart rate is recorded at 151 beats per minute. A posterior grade 2 placenta is seen without evidence of previa or abruption. Amniotic fluid is subjectively normal. Closed cervical length is 3.5 cm. There is a somewhat prominent persistent cavum vergae between the cerebral hemispheres just posterior to the normally visualized cavum septum pellucidum. This persistence of the cavum vergae is a normal variant. No other intracranial abnormality is appreciated. Choroid plexus and the ventricles are unremarkable. Cerebellum and posterior fossa are intact. The following additional anatomic structures are identified and felt to be unremarkable: Face and profile, right ventricular cardiac outflow tract view, diaphragm, left-sided stomach, three-vessel cord, kidneys and bladder, spine, lower extremities. The lungs, four-chamber heart and left ventricular outflow tract as well as abdominal wall cord insertion and upper extremities are less than optimally seen due to crowding and position. Biometry chart: BPD 8.0 cm = 32 weeks 0 days Head circumference 29.6 cm = 32 weeks 5 days Abdominal circumference 28.8 cm = 32 weeks 6 days Femur length 6.0 cm = 31 weeks 2 days Humeral length 5.5 cm = 31 weeks 5 days HC/AC ratio normal 1.03. Cephalic index normal 0.75. Estimated weight 1942 grams, 4 pounds 4 ounces, 32nd percentile for 32 weeks 6 days. BJ normal 12.0 cm. S/D ratio 3.40 (2.05-3.05). Impression: Viable single intrauterine gestation at 32 weeks 1 day by today's composite criteria. NIA by today's composite criteria August 30, 2019. Persistent cavum vergae is noted intracranially. No other evidence of anomaly. This is felt to be consistent with an isolated normal variant. Electronically Signed by Sherif Leo MD 07/06/2019 03:12 P
--- NOTE | 2019-07-06 15:53 | IPN ---
DATE: 07/06/2019 24-year-old G1 at 32-5/7 weeks gestation [address] from Dr[address] Jordan's office to triage for evaluation. She came on her own volition. She was told in [facility] that her baby had a problem with its brain, but no one explained anything to her. She got upset when she could not get more information. This imaging had been done at the center, not in [place]. So she came to get an explanation for what was going on. She denies contractions or vaginal bleeding. There is good movement. She was told to have an MRI of the brain, however, she declined this test due to risks to the fetus. OBJECTIVE: She is afebrile. Vital signs stable. No apparent distress. Head and neck is normal. Lungs clear. Heart: Regular rhythm. Abdomen nontender, gravid. heart tones category 1. Contractions: None. Extremities: Nontender. Ultrasound: Ultrasound shows persistent cavum vergae of the brain. 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 PLAN: The patient has followup appointment with the center on July 19. According to our research this embryologic anomaly is a normal variant. It does not have any implications except in rare cases. The patient will also followup with care in [place]. Patient is satisfied with the information she received. She will be discharged home.
== END 2019-07-06 15:44 | disposition home or self-care (01) ==
LOC: M LDO 10:31
PROVIDERS: ATTEND Specialist
DX: O35.0XX0 Maternal care for (suspected) central nervous system malformation in fetus, not applicable or unspecified (principal); Z3A.32 32 weeks gestation of pregnancy; Z91.018 Allergy to other foods

== ENCOUNTER 2019-08-06 16:09 | Outpatient (CLI) | payer MEDICAID, OTHER ==
[~2019-08-06] VITALS: Ht 167.6 cm; Wt 75.5 kg
[2019-08-06] MEDS ORDERED: COLA100C5 PO (16:27)
[2019-08-06] MEDS ORDERED: VITA30004 PO (16:27)
[2019-08-06] MEDS ORDERED: FERR325T82 PO (16:27)
[2019-08-06 16:28] VITALS: BP 122/70
[2019-08-06 17:28] VITALS: BP 124/78
[2019-08-06 18:26] VITALS: BP 112/65
== END 2019-08-06 21:00 | disposition home or self-care (01) ==
LOC: M LDO 16:09
PROVIDERS: ATTEND Obstetrics & Gynecology
DX: O26.893 Other specified pregnancy related conditions, third trimester (principal); Z3A.37 37 weeks gestation of pregnancy; R10.2 Pelvic and perineal pain; Z91.018 Allergy to other foods; Z79.899 Other long term (current) drug therapy